=== PATIENT | female | born 1960 | race Caucasian/White ===

== ENCOUNTER 2021-11-28 18:26 | Emergency (ER) | payer OTHER, SELFPAY ==
--- NOTE | ~2021-11-28 | XR_ITS ---
EXAM: XR hand RT min 3V DATE: 11/28/2021 18:54 HISTORY: SWELLING/PAIN OVER 2ND DORSAL METACARPAL . COMPARISON: None available. FINDINGS: Normal mineralization. No fracture or dislocation. No lytic or blastic lesion. Joint space s are maintained. No erosion or periosteal change. Soft tissues within normal limits. IMPRESSION: No acute osseous finding in the right hand. Reviewed, dictated and finalized at location K.
[2021-11-28 18:42] VITALS: BP 102/63; PULSE 75; RESP 18; TEMP 36.3; O2SAT 100
--- NOTE | 2021-11-28 19:37 | ED.UPPEXIN ---
HPI - Extremity Injury (Upper) General Chief Complaint: Extremity Injury, Upper Stated Complaint: rt hand pain Time Seen by Provider: 11/28/21 19:25 Source: patient, RN notes reviewed and old records reviewed Mode of arrival: ambulatory History of Present Illness HPI narrative: 61-year-old female who presents to [facility] with complaints of injury to her right hand while working in the yard today when a wheelbarrow full of bricks and rocks fell onto her right hand. Injury occurred approximately 1 hour prior to arrival in clinic. Patient has 2 small abrasions/puncture herman to the dorsal aspect of her right hand with some bruising and swelling noted. Patient has full mobility of her fingers denies any tingling or numbness has brisk capillary refill to her fingernails. Patient report pain to her hand 9/10 is right hand dominant. MD complaint: injury to: right and hand Onset (ago): day(s) (1 hour prior to arrival) Severity scale (1-10): 9 Related Data Home Medications Medication Instructions Recorded Confirmed albuterol sulfate 90 mcg/actuation 2 inh inhalation Q6H PRN Shortness 11/28/21 11/28/21 aerosol inhaler (ProAir HFA) Of Breath Or Wheezing apixaban 5 mg tablet (Eliquis) 1 tablet PO BID 11/28/21 11/28/21 digoxin 250 mcg (0.25 mg) tablet 1 tablet PO DAILY 11/28/21 11/28/21 empagliflozin 10 mg tablet 1 tablet PO DAILY 11/28/21 11/28/21 (Jardiance) fluticasone propionate 50 1 spray intranasal DAILY 11/28/21 11/28/21 mcg/actuation nasal spray,suspension furosemide 40 mg tablet 1 tablet PO DAILY 11/28/21 11/28/21 ipratropium bromide 0.02 % 2.5 ml continuous nebulization Q6H 11/28/21 11/28/21 solution for inhalation losartan 25 mg tablet 1 tablet PO DAILY 11/28/21 11/28/21 metoprolol tartrate 100 mg tablet 1 tablet PO BID 11/28/21 11/28/21 omeprazole 20 mg capsule,delayed 1 cap PO TID 11/28/21 11/28/21 release sertraline 100 mg tablet 1 tablet PO DAILY 11/28/21 11/28/21 spironolactone 25 mg tablet 1 tablet PO DAILY 11/28/21 11/28/21 Allergies Allergy/AdvReac Type Severity Reaction Status Date / Time sulfamethoxazole Allergy Intermediate hives Verified 11/28/21 19:40 trimethoprim Allergy Intermediate hives Verified 11/28/21 19:40 diazepam Allergy Unknown HIVES Verified 11/28/21 19:40 shellfish derived Allergy Unknown Hives / Verified 11/28/21 19:40 Red Face Review of Systems Review of Systems: CONSTITUTIONAL: Denies fever, chills, or sweats. EYES: Denies visual changes, redness, or discharge. ENT: Denies rhinorrhea, congestion, sore throat, or otalgia. CARDIOVASCULAR: Denies chest pain, palpitations, or edema. RESPIRATORY: Denies cough reports no acute dyspnea. GASTROINTESTINAL: Denies abdominal pain, nausea, vomiting, or diarrhea. GENITOURINARY: Denies dysuria or hematuria. SKIN: positive for puncture herman to dorsal aspect of right hand X2 MUSCULOSKELETAL: Denies back pain,positive for right hand pain, or myalgia. NEUROLOGIC: Denies headache, numbness, or weakness. PSYCHIATRIC: positive history of anxiety and depression. [facility] Past Medical History Medical History (Updated 11/30/21 @ 17:21 by Miroslava Hui NP) A-fib Anemia Arthritis Asthma Back pain CHF (congestive heart failure), NYHA class I Contusion of right hand COPD (chronic obstructive pulmonary disease) Fibromyalgia GERD (gastroesophageal reflux disease) Hypertension Kidney stones Pacemaker X2 Sleep apnea Surgical History Surgical History (Updated 11/30/21 @ 15:53 by Miroslava Hui NP) H/O gastric bypass History of appendectomy History of dilatation and curettage History of endometrial ablation Novasure History of hysterectomy Hx of cholecystectomy Previous section S/P panniculectomy Tubal ligation status Social History Social History (Updated 11/30/21 @ 15:45 by Miroslava Hui NP) Smoking status: Unknown if ever smoked Substance use type: does not use Living arrangements: with family G
== END 2021-11-28 20:10 | disposition home or self-care (01) ==
PROVIDERS: Emergency Provider Registered Nurse; PCP Family Medicine
DX: S60.221A Contusion of right hand, initial encounter (principal); S61.431A Puncture wound without foreign body of right hand, initial encounter; W20.8XXA Other cause of strike by thrown, projected or falling object, initial encounter; I48.91 Unspecified atrial fibrillation; M19.90 Unspecified osteoarthritis, unspecified site; J44.9 Chronic obstructive pulmonary disease, unspecified; M79.7 Fibromyalgia; K21.9 Gastro-esophageal reflux disease without esophagitis; I11.0 Hypertensive heart disease with heart failure; I50.9 Heart failure, unspecified; Z95.0 Presence of cardiac pacemaker; G47.30 Sleep apnea, unspecified; Z98.84 Bariatric surgery status
CPT/HCPCS: 73130; 99213; G0463